=== PATIENT | female | born 1975 | race Caucasian/White ===

== ENCOUNTER 2019-02-11 14:33 | Emergency (ER) | payer OTHER ==
--- NOTE | 2019-02-11 14:47 | EDPHY ---
H & P Stated Complaint: headache, tingling radiating to left arm, chest pressure x 2 days Time Seen by Provider: 02/11/19 14:45 - Personal History LMP (Females 10-55): 22-28 Days Ago Current Tetanus Diphtheria and Acellular Pertussis (TDAP): Yes - Medical/Surgical History Hx Asthma: No Hx Chronic Respiratory Disease: No Hx Diabetes: No Hx Cardiac Disease: No Hx Renal Disease: No Hx Cirrhosis: No Hx Alcoholism: No Hx HIV/AIDS: No Hx Splenectomy or Spleen Trauma: No Other PMH: none - Social History Smoking Status: Never smoked Constitutional: Initial Vital Signs Temperature (C) 36.9 C 02/11/19 14:36 Heart Rate 63 02/11/19 14:36 Respiratory Rate 16 02/11/19 14:36 Blood Pressure 154/91 H 02/11/19 14:36 O2 Sat (%) 98 02/11/19 14:36 O2 Delivery Mode Room Air Allergies/Adverse Reactions: No Known Allergies Allergy (Unverified 02/11/19 14:40) Home Medications: Medication Instructions Recorded NK [No Known Home Meds] 02/11/19 Medical Decision Making - Diagnostics Imaging Results: Imaging Impressions Chest X-Ray 02/11/19 14:49 Impression: Negative for acute cardiopulmonary abnormality. Presumptive granuloma in the periphery of the right lower lung. Chest/Thorax CTA 02/11/19 15:37 Impression: Limited study due to respiratory motion. No acute pulmonary embolus centrally or within the lobar branches. Upper and middle lobes demonstrate no segmental pulmonary embolus. Findings and recommendations discussed with Lalo Bryant MD's phys assistant at 1654 hour, 02/11/2019. Imaging: Discussed imaging studies w/ mail caller Radiologist, I viewed and interpreted images myself ED Course/Re-evaluation: CHIEF COMPLAINT: Chest pressure HISTORY OF PRESENT ILLNESS: The patient is a 43 y/o female complaining of chest pressure and left arm numbness/tingling. The patient first experienced these symptoms several weeks ago and saw her PCP, but had no definitive diagnosis. Two days ago she developed the chest pressure and arm numbness again. Last night she developed chills and a headache. She has also had intermittent fevers at night. Due to her symptoms today she decided to present to the emergency department. She did take an Aspirin prior to presenting to the emergency department. No body aches, lightheadedness, heart palpitations, shortness of breath, cough, abdominal pain , urinary or bowel complaints, numbness, paresthesias. REVIEW OF SYSTEMS: A 10 point review of systems was performed and is negative with the exception of the elements mentioned in the history of present illness. PHYSICAL EXAM: HR, BP, O2 Sat, RR. Temp noted General Appearance: Alert, well hydrated, appropriate, and non-toxic appearing. Head: Atraumatic without scalp tenderness or obvious injury Eyes: Pupils equal, round, reactive to light and accommodation, EOMI, no trauma , no injection. Ears: Clear bilaterally, no perforation, normal landmarks Nose: Atraumatic, no rhinorrhea, clear. Throat: There is no erythema or exudates, no lesions, normal tonsils, mucus membranes moist. Neck: Supple, 2+ carotid upstroke, nontender, no lymphadenopathy. Respiratory: No retractions, no distress, no wheezes, and no accessory muscle use. Lungs are clear to auscultation bilaterally. Cardiovascular: 1/6 systolic ejection murmur. Regular rate and rhythm, rubs, or gallops. Bilateral carotid, radial, dorsalis pedis, and posterior tibial pulses intact. Good capillary refill all extremities. Gastrointestinal: Abdomen is soft, nontender, non-distended, no masses, no rebound, no guarding, no peritoneal signs. Musculoskeletal: Normal active ROM of all extremities, atraumatic. Neurological: Alert, appropriate, and interactive. The patient has normal DTRs and non-focal cranial nerves, motor, sensory, and cerebellar exam. Skin: No rashes, good turgor, no nodules on palpation. Past medical history: Denies Past surgical history: Denies Family history: Denies Social history: Friend at bedside, , lives in [place] DIAGNOSTICS/PROCEDURES/CRITICAL CARE TIME: EKG: The 12 lead EKG was interpreted by myself as sinus rhythm with a rate of 67. See hard copy and/or "tracemaster" electronic copy for interpretation. Chest x-ray: No acute findings. Echo: Unremarkable. Chest CTA: No central, upper or middle lobe PE. Unable to evaluate lower lobes due to patient's inspirations. DIFFERENTIAL DIAGNOSIS: The differential diagnosis for the patient's chest pain included but was not limited to myocardial ischemia, pulmonary embolus, chest wall pain, pleural inflammation, and pulmonary infectious causes. MEDICAL DECISION MAKING: The patient is a 43 y/o female presenting with chest pressure and left arm numbness/tingling acute onset 2 days ago, although she has had episodes intermittently for several weeks. She did take an Aspirin prior to presenting to the emergency department. On exam she has a 1/6 systolic ejection murmur but has never been told she has a murmur. Labs, chest x-ray, and EKG ordered. Patient will also need an Echo as she has no history of the murmur; I have paged the contract technical writer. 1450: I interpreted patient's EKG as sinus rhythm with a rate of 67. 1530: Patient has a negative troponin. I also reviewed her chest x-ray which has no acute findings. 1540: Patient's Echo is unremarkable per the contract technical writer. Patient does have an elevated d-dimer of 0.55; chest CTA ordered. 1656: I spoke to Dr. Berumen, radiologist, regarding patient's chest CTA. There is no central, upper or middle lobe PE. Unable to evaluate lower lobes due to patient's inspirations. 1700: Reassessed patient and discussed imaging and laboratory findings. I have advised her to follow up with her PCP and a server administrator. Return precautions provided; patient is comfortable with this plan. - Data Points Laboratory Results: Laboratory Results 02/11/19 14:51 02/11/19 14:51 02/11/19 02/11/19 02/11/19 15:00 14:55 14:51 WBC RBC Hgb Hct MCV MCH MCHC RDW Plt Count MPV Neut % (Auto) Lymph % (Auto) [place] % (Auto) Eos % (Auto) Baso % (Auto) Nucleat RBC Rel Count Absolute Neuts (auto) Absolute Lymphs (auto) Absolute Monos (auto) Absolute Eos (auto) Absolute Basos (auto) Absolute Nucleated RBC Immature Gran % Immature Gran # D-Dimer 0.55 ug/mLFEU H ug/mLFEU (0.00-0.50) Sodium Potassium Chloride Carbon Dioxide Anion Gap BUN Creatinine Estimated GFR Glucose Calcium POC Troponin I 0.00 ng/mL ng/mL (0.00-0.08) NT-Pro-B Natriuret Pep Beta HCG, Qual NEGATIVE 02/11/19 02/11/19 14:51 14:51 WBC 8.78 10^3/uL 10^3/uL (3.80-9.50) RBC 4.69 10^6/uL 10^6/uL (4.18-5.33) Hgb 13.6 g/dL g/dL (12.6-16.3) Hct 42.3 % % (38.0-47.0) MCV 90.2 fL fL (81.5-99.8) MCH 29.0 pg pg (27.9-34.1) MCHC 32.2 g/dL L g/dL (32.4-36.7) RDW 14.1 % % (11.5-15.2) Plt Count 247 10^3/uL 10^3/uL (150-400) MPV 9.6 fL fL (8.7-11.7) Neut % (Auto) 60.1 % % (39.3-74.2) Lymph % (Auto) 32.0 % % (15.0-45.0) [place] % (Auto) 6.4 % % (4.5-13.0) Eos % (Auto) 0.8 % % (0.6-7.6) Baso % (Auto) 0.5 % % (0.3-1.7) Nucleat RBC Rel Count 0.0 % % (0.0-0.2) Absolute Neuts (auto) 5.28 10^3/uL 10^3/uL (1.70-6.50) Absolute Lymphs (auto) 2.81 10^3/uL 10^3/uL (1.00-3.00) Absolute Monos (auto) 0.56 10^3/uL 10^3/uL (0.30-0.80) Absolute Eos (auto) 0.07 10^3/uL 10^3/uL (0.03-0.40) Absolute Basos (auto) 0.04 10^3/uL 10^3/uL (0.02-0.10) Absolute Nucleated RBC 0.00 10^3/uL 10^3/uL (0-0.01) Immature Gran % 0.2 % % (0.0-1.1) Immature Gran # 0.02 10^3/uL 10^3/uL (0.00-0.10) D-Dimer Sodium 138 mEq/L mEq/L (135-145) Potassium 3.9 mEq/L mEq/L (3.5-5.2) Chloride 103 mEq/L mEq/L (97-110) Carbon Dioxide 26 mEq/l mEq/l (22-31) Anion Gap 9 mEq/L mEq/L (6-14) BUN 10 mg/dL mg/dL (7-23) Creatinine 0.6 mg/dL mg/dL (0.6-1.0) Estimated GFR > 60 Glucose 104 mg/dL H mg/dL (70-100) Calcium 9.6 mg/dL mg/dL (8.5-10.4) POC Troponin I NT-Pro-B Natriuret Pep 46 pg/mL pg/mL (0-125) Beta HCG, Qual Medications Given: Discontinued Medications Albuterol/Ipratropium (Duoneb) 3 ml IH EDNOW ONE Stop: 02/11/19 15:37 Last Admin: 02/11/19 16:05 Dose: 3 ml Point of Care Test Results: Chemistry 02/11/19 15:00 POC Troponin I 0.00 ng/mL ng/mL (0.00-0.08) Departure - Departure Disposition: Home, Routine, Self-Care Clinical Impression: Chest pain Qualifiers: Chest pain type: other chest pain Qualified Code(s): R07.89 - Other chest pain Condition: Good Instructions: Chest Pain (ED) Additional Instructions: 1. Follow-up with your primary doctor within 72 hours. 2. Return to the Emergency Department for fever, chest pain, shortness of breath , increasing pain or other worsening of condition. 3. Follow up with a server administrator for further testing, as soon as possible, within one week. 4. As we discussed, it is impossible to fully rule out heart disease as the cause of your chest pain in the emergency department. We would be happy to reevaluate you and observe you in the hospital at any time. Referrals: Faisal Faustin MD [Medical Doctor] - As per Instructions Print Language: Liberian Report Scribed for: Lalo Bryant Report Scribed by: Evette Mathews Date of Report: 02/11/19 Time of Report: 15:35
[2019-02-11 15:07] LABS: PLATELET COUNT 247 10^3/uL (150-400)
[2019-02-11] MEDS ORDERED: IPRATROPIUM/ALBUTEROL 3 ML DEYVIAL IH ONE (15:36)
[2019-02-11] MEDS ORDERED: IOPAMIDOL (ISOVUE-370) 150 ML BTL IV ONE (16:11)
[2019-02-11 17:28] VITALS: BP 141/68
--- NOTE | 2019-02-11 19:21 | CPEKG ---
Test Reason : OPEN Blood Pressure : / mmHG Vent. Rate : 067 BPM Atrial Rate : 066 BPM P-R Int : 145 ms QRS Dur : 094 ms QT Int : 403 ms P-R-T Axes : 027 041 031 degrees QTc Int : 426 ms Sinus rhythm Confirmed by Lalo Bryant ([id number]) on 02/11/2019 7:20:38 PM Referred By: Lalo Bryant Confirmed By:Lalo Bryant
--- NOTE | 2019-02-12 09:53 | ECHO ---
[email or web address] [address] Main: [phone] Echocardiography Examination Transthoracic Name: GURU MEDEIROS MR#: [id number] Study Date: 02/11/2019 Study Time: 03:25 PM Date of : 1975 Age: 43 year(s) Height: 157.5 cm (62 in.) Weight: 68.95 kg (152 lb.) BSA: 1.7 m2 Gender: Female Examination: Echo Contrast: Image Quality: Good Rhythm: Normal sinus rhythm Heart Rate: 66 bpm BP: 141 mmHg/69 mmHg Indication: Chest Pain Procedure Staff Referring Physician: Die Cutter Operator: Farhat Aparicio RDCS Reading Physician: Faisal Faustin MD Requesting Provider: Lalo Bryant Indication: Chest Pain Measurements Chambers AV/MV Label Value Normal Value Label Value Normal Value EF lower range (%) 60 % AV PGmax 12 mmHg EF upper range (%) 65 % AV PGmean 6 mmHg IVSd, 2D 0.8 cm (0.6cm - 1.1cm) AV Vmax 1.7 m/s LVDd, 2D 4.6 cm (3.9cm - 5.3cm) MV A Vmax 0.69 m/s LVDs, 2D 3.1 cm (2.1cm - 4cm) MV E' lateral 0.11 m/s LVEF, 2D 62 % (54% - 74%) MV E' mean 0.08 m/s LVOT PGmax 2 mmHg MV E' septal 0.06 m/s LVOT PGmean 1 mmHg MV E Vmax 0.81 m/s LVOT Vmax 0.68 m/s (0.7m/s - 1.1m/s) MV E/A 1.17 LVOT Vmean 0.48 m/s MV E/E' lateral 7.2 LVPWd, 2D 0.9 cm MV E/E' mean 9.53 RVDd, 2D 1.9 cm (1.9cm - 3.8cm) MV E/E' septal 13 (0.5 - 1.7) LA Volume, BP 29 ml (22ml - 52ml) TV/PV LAESV index, BP 17.1 ml/m2 Label Value Normal Value Additional Vessels PV PGmax 4 mmHg Label Value Normal Value PV Vmax, Caliper 1.03 m/s (0.6m/s - 0.9m/s) AoRoot, MM 3.1 cm (2.2cm - 3.7cm) Conclusions Patient: GURU MEDEIROS Study Date: 02/11/2019 Page 1 of 3 03:25 PM Left Ventricle: Normal global systolic left ventricular function. EF range is estimated at 60 % - 65 %. There are no regional wall motion abnormalities. Right Ventricle: Right ventricular systolic function is normal. Left Atrium: The left atrium is normal in size. Right Atrium: The right atrium is normal in size. Pericardium: No pericardial effusion. Findings Left Ventricle: Left ventricle is normal in size. Normal global systolic left ventricular function. EF range is estimated at 60 % - 65 %. Left ventricle wall thickness is normal. There are no regional wall motion abnormalities. Left ventricular diastolic function parameters are normal. IVS: The septum is intact. Right Ventricle: Normal size right ventricle. Right ventricular wall thickness is normal. Right ventricular systolic function is normal. Left Atrium: The left atrium is normal in size. IAS: Normal appearing atrial septum. Right Atrium: The right atrium is normal in size. Mitral Valve: Normal . No mitral regurgitation. No mitral valve stenosis. Aortic Valve: Aortic leaflets exhibit normal cuspal separation. No aortic valve regurgitation. There is no aortic stenosis. Tricuspid Valve: Tricuspid valve leaflets are normal in appearance and function. No tricuspid regurgitation. No tricuspid valve stenosis. Pulmonary artery pressure cannot be assessed due to inadequate TR signal. Pulmonic Valve: Pulmonic leaflets exhibit normal cuspal separation. No pulmonic valve regurgitation is evident. There is no pulmonic valve stenosis. Aorta: The aorta is normal. The aortic root size in M-mode measures 3.1 cm. Aorta Measurements AoRoot, MM is 3.1 cm. Pulmonary Artery: The pulmonary artery morphology appears normal. IVC: The inferior vena cava is normal in size and course. Pericardium: No pericardial effusion. No pleural effusion present. Patient: GURU MEDEIROS Study Date: 02/11/2019 Page 2 of 3 03:25 PM Exam Details Procedure Ordered: Echo Procedure Status: Routine study Image Quality: Good Facility Location: Cardiac Echo 1 (No Signature Object) Patient: GRUU MEDEIROS Study Date: 02/11/2019 Page 3 of 3 03:25 PM [id number]
== END 2019-02-11 17:27 | disposition home or self-care (01) ==
DX: R07.89 Other chest pain (principal)
CPT/HCPCS: 84484-ER; Q9967